=== PATIENT | male | born 1955 | race African-American/Black ===

== ENCOUNTER 2019-02-16 19:54 | Inpatient (IN) | payer MEDICARE ==
[~2019-02-16] VITALS: Ht 185.4 cm; Wt 64.9 kg
[~2019-02-16 19:54] MED LIST: ALPR1TAB2 PO; ALPR1TAB6 PO; CHLO25CA9 PO; CHLO5CAP2 PO; MEGE400O PO; SERT50TA8 PO; SPIR50TA4 PO
--- NOTE | 2019-02-16 21:10 | PHYS DOC ---
Past Medical History Past Medical History: GERD, Hepatitis, Liver Disease Past Surgical History: No Surgical History Alcohol Use: None Drug Use: Marijuana Adult General Chief Complaint Chief Complaint: OTHER COMPLAINTS HPI HPI Patient is a 63 year old M who presents with confusion. He states that this has been going on for one week. He reports that he usually takes anti-anxiety medication but has recently run out and would like more. He is a former ETOH user with a history of hepatitis C. He is a current everyday smoker and occasionally uses marijuana. He also reports feeling as though his brother is out to get him. Additional history obtained from the daughter. He is locking himself in his room he is not safe to be at home he is paranoid he gets intermittently agitated she thinks he has issues with his hepatitis C she wants him to be admitted Review of Systems Review of Systems Constitutional: Denies fever or chills [] Eyes: Denies change in visual acuity, redness, or eye pain [] HENT: Denies nasal congestion or sore throat [] Respiratory: Denies cough or shortness of breath [] Cardiovascular: No additional information not addressed in HPI [] GI: Denies abdominal pain, nausea, vomiting, bloody stools or diarrhea [] : Denies dysuria or hematuria [] Musculoskeletal: Denies back pain or joint pain [] Integument: Denies rash or skin lesions [] Neurologic: Denies headache, focal weakness or sensory changes [] Endocrine: Denies polyuria or polydipsia [] All other systems were reviewed and found to be within normal limits, except as documented in this note. Current Medications Current Medications Current Medications Medications (Trade) Dose Ordered Sig/Dima Start Time Stop Time Status Last Admin Dose Admin Lorazepam (Ativan) 1 mg 1X ONCE 02/16/19 21:30 02/16/19 21:31 DC 02/16/19 22:06 1 MG Allergies Allergies Allergies Coded Allergies Type Severity Reaction Last Updated Verified Penicillins Allergy Intermediate 08/19/15 Yes Physical Exam Physical Exam Constitutional: Well developed,cachectic dishveled HENT: Normocephalic, atraumatic, bilateral external ears normal, oropharynx dry, no oral exudates, nose normal. [] Eyes: PERRLA, EOMI, conjunctiva normal, no discharge. [] Neck: Normal range of motion, no tenderness, supple, no stridor. [] Cardiovascular:Heart rate regular rhythm, no murmur [] Lungs & Thorax: Bilateral breath sounds clear to auscultation [] Abdomen: Bowel sounds normal, soft, no tenderness, no masses, no pulsatile masses. [] Skin: Warm, dry, no erythema, no rash. [] Back: No tenderness, no CVA tenderness. [] Extremities: No tenderness, no cyanosis, no clubbing, ROM intact, one plus edema. Neurologic: Alert and oriented 2 moving all extremities no cranial nerve deficit Psychologic: Patient has evidence of some paranoia Current Patient Data Vital Signs Vital Signs Date Time Temp Pulse Resp B/P (MAP) Pulse Ox O2 Delivery O2 Flow Rate FiO2 02/16/19 20:50 98.3 78 18 117/75 (89) 98 Room Air 98.3 Lab Values Laboratory Tests Test 02/16/19 21:25 White Blood Count 6.5 x10^3/uL (4.0-11.0) Red Blood Count 4.12 x10^6/uL (4.30-5.70) L Hemoglobin 13.5 g/dL (13.0-17.5) Hematocrit 39.4 % (39.0-53.0) Mean Corpuscular Volume 96 fL (79-100) Mean Corpuscular Hemoglobin 33 pg (25-35) Mean Corpuscular Hemoglobin Concent 34 g/dL (31-37) Red Cell Distribution Width 14.2 % (11.5-14.5) Platelet Count 231 x10^3/uL (140-400) Neutrophils (%) (Auto) 35 % (31-73) Lymphocytes (%) (Auto) 49 % (24-48) H Monocytes (%) (Auto) 12 % (0-9) H Eosinophils (%) (Auto) 3 % (0-3) Basophils (%) (Auto) 1 % (0-3) Neutrophils # (Auto) 2.3 x10^3uL (1.8-7.7) Lymphocytes # (Auto) 3.2 x10^3/uL (1.0-4.8) Monocytes # (Auto) 0.8 x10^3/uL (0.0-1.1) Eosinophils # (Auto) 0.2 x10^3/uL (0.0-0.7) Basophils # (Auto) 0.1 x10^3/uL (0.0-0.2) Prothrombin Time 14.0 SEC (11.7-14.0) Prothrombin Time INR 1.1 (0.8-1.1) Sodium Level 140 mmol/L (136-145) Potassium Level 3.8 mmol/L (3.5-5.1) Chloride Level 103 mmol/L (98-107) Carbon Dioxide Level 26 mmol/L (21-32) Anion Gap 11 (6-14) Blood Urea Nitrogen 8 mg/dL (8-26) Creatinine 0.8 mg/dL (0.7-1.3) Estimated GFR (Cockcroft-Gault) 118.1 BUN/Creatinine Ratio 10 (6-20) Glucose Level 83 mg/dL (70-99) Calcium Level 9.0 mg/dL (8.5-10.1) Total Bilirubin 0.3 mg/dL (0.2-1.0) Aspartate Amino Transferase (AST) 15 U/L (15-37) Alanine Aminotransferase (ALT) 15 U/L (16-63) L Alkaline Phosphatase 91 U/L (46-116) Ammonia 20 mcmol/L (11-34) VV-Obz-P-Type Natriuretic Peptide 14 pg/mL (0-124) Total Protein 7.6 g/dL (6.4-8.2) Albumin 3.7 g/dL (3.4-5.0) Albumin/Globulin Ratio 0.9 (1.0-1.7) L Ethyl Alcohol Level < 10 mg/dL (0-10) Laboratory Tests 02/16/19 21:25 Laboratory Tests 02/16/19 21:25 EKG EKG [] Interpretation Time: Normal sinus rhythm rate of 75 no acute ischemic changes noted interpreted by me time of encounter Radiology/Procedures Radiology/Procedures [] Impressions: CT scan of the head without contrast 02/16/2019 Clinical History: Altered mental status. Technique: Unenhanced, contiguous, 5 mm axial sections were obtained through the head. One or more of the following individualized dose reduction techniques were utilized for this study: 1. Automated exposure control. 2. Adjustment of the mA and/or kV according to patient size. 3. Use of iterative reconstruction technique. Findings: Comparison study is dated 03/20/2014. There is generalized parenchymal atrophy. Areas of decreased attenuation are seen within the periventricular and subcortical white matter of both cerebral hemispheres consistent with areas of small vessel ischemic disease. No acute parenchymal abnormality is seen. No extra-axial fluid collection is noted. No skull fracture is seen. Impression: No acute intracranial abnormality is seen. Electronically signed by: Isrrael Chang MD (02/16/2019 9:54 PM) [facility] DICTATED and SIGNED BY: ISRRAEL CHANG MD DATE: 02/16/192153 Course & Med Decision Making Course & Med Decision Making Pertinent Labs and Imaging studies reviewed. (See chart for details) []63-year-old male with history of hepatitis C who is presenting with increasing paranoia, currently in the emergency room, and cooperative but daughter and mother who live with him are adamant that he must be admitted for placement D/W APPL ADMIT FOR PLACEMENT URINE PENDING, BUT LABS AND VITALS ARE NORMAL OTHERWISE. CT HEAD NEG CXR NEG ACUTE Dragon Disclaimer Dragon Disclaimer This electronic medical record was generated, in whole or in part, using a voice recognition dictation system. Departure Departure Impression: Primary Impression: Cirrhosis of liver Additional Impression: Confusion Disposition: ADMITTED INPATIENT Admitting Physician: Milly Mace Condition: STABLE Referrals: MILLY MACE MD (PCP) Problem Qualifiers TYLER SEPULVEDA MD February 16, 2019 21:10
[2019-02-16] MEDS ORDERED: LORazepam 0.5 MG TABLET PO ONE (21:30)
[2019-02-16 21:41] LABS: BASO # 0.1 x10^3/uL (0.0-0.2); BASO % 1 % (0-3); EOS # 0.2 x10^3/uL (0.0-0.7); EOS % 3 % (0-3); HEMATOCRIT 39.4 % (39.0-53.0); HEMOGLOBIN 13.5 g/dL (13.0-17.5); LYMPH # 3.2 x10^3/uL (1.0-4.8); LYMPH % 49 % (24-48); MEAN CORPUSCULAR HEMOGLOBIN 33 pg (25-35); MEAN CORPUSCULAR HGB CONC 34 g/dL (31-37); MEAN CORPUSCULAR VOLUME 96 fL (79-100); MONO # 0.8 x10^3/uL (0.0-1.1); MONO % 12 % (0-9); NEUT # 2.3 x10^3uL (1.8-7.7); NEUT % 35 % (31-73); PLATELET COUNT 231 x10^3/uL (140-400); RED BLOOD COUNT 4.12 x10^6/uL (4.30-5.70); RED CELL DISTRIBUTION WIDTH 14.2 % (11.5-14.5); WHITE BLOOD COUNT 6.5 x10^3/uL (4.0-11.0)
[2019-02-16 21:52] LABS: CREATININE 0.8 mg/dL (0.7-1.3); GFR 118.1; POTASSIUM 3.8 mmol/L (3.5-5.1)
--- NOTE | 2019-02-16 21:57 | RAD ---
CT scan of the head without contrast 02/16/2019 Clinical History: Altered mental status. Technique: Unenhanced, contiguous, 5 mm axial sections were obtained through the head. One or more of the following individualized dose reduction techniques were utilized for this study: 1. Automated exposure control. 2. Adjustment of the mA and/or kV according to patient size. 3. Use of iterative reconstruction technique. Findings: Comparison study is dated 03/20/2014. There is generalized parenchymal atrophy. Areas of decreased attenuation are seen within the periventricular and subcortical white matter of both cerebral hemispheres consistent with areas of small vessel ischemic disease. No acute parenchymal abnormality is seen. No extra-axial fluid collection is noted. No skull fracture is seen. Impression: No acute intracranial abnormality is seen. Electronically signed by: Isrrael Chang MD (02/16/2019 9:54 PM) [employer]
[2019-02-16 21:58] LABS: ALBUMIN 3.7 g/dL (3.4-5.0); ALBUMIN/GLOBULIN RATIO 0.9 (1.0-1.7); TOTAL BILIRUBIN 0.3 mg/dL (0.2-1.0); TOTAL PROTEIN 7.6 g/dL (6.4-8.2)
--- NOTE | 2019-02-16 22:33 | RAD ---
AP portable chest radiograph 02/16/2019 Clinical History: Shortness of breath. An AP erect portable digital radiograph of the chest was obtained. Comparison study is dated 03/19/2014. The cardiac silhouette is normal in size. The thoracic aorta is mildly tortuous. No acute pulmonary infiltrate is seen. No pleural effusion or pneumothorax is noted. Degenerative changes are seen involving the thoracic spine and both shoulders. Impression: No acute abnormality is seen. Electronically signed by: Isrrael Chang MD (02/16/2019 10:30 PM) [facility]
[2019-02-17] VITALS (7 sets, daily range): BP systolic 93–126; BP diastolic 53–79
[2019-02-17] MEDS ORDERED: QUEtiapine 50 MG TAB.ER.24H. PO ONE (03:00)
--- NOTE | 2019-02-17 06:32 | EKG ---
[facility] [address] [place] [address] Test Date: 2019-02-16 Test Time: 21:29:22 Pat Name: ROSSY SHERMAN Department: Room: 514 Gender: M Clinical Lab Clerk: [id number] : 1955 Requested By: TYLER SEPULVEDA Order Number: [id number] Reading MD: Obi Cee Measurements Intervals [place] Rate: 75 P: 41 MS: 198 QRS: 8 QRSD: 78 T: 52 QT: 402 QTc: 452 Interpretive Statements SINUS RHYTHM NORMAL ECG Electronically Signed On 03-12-2019 11:59:38 CDT by Obi Cee
[2019-02-17] MEDS ORDERED: chlordiazePOXIDE HCL 25 MG CAPSULE PO PRN (09:30)
--- NOTE | 2019-02-17 10:38 | NUR ---
BRANDON consulted for accessing meds, food, hx of anxiety and paranoid behaviors. Chart reviewed and DW RN. Pt lives at home with his elderly mother and usually barricades himself in his room. Pt will benefit from [facility] mental health services. BRANDON phoned PAT team for assessment and evaluation for outpatient services. Bob will come in to see pt today.
--- NOTE | 2019-02-17 15:12 | HP ---
ADMIT DATE: 02/16/2019 CHIEF COMPLAINT AND HISTORY OF PRESENT ILLNESS: This 63-year-old male is well known to me, followup in the office. The patient was brought to the Emergency Room by family on the day of admission. I have spoken with his mother in the morning of me seeing her, she states for the last couple of weeks the patient has been out of control, screaming, hollering and then scaring her as she is approaching 89 years of age. He has called the police on many occasions and then when they get there, he states that he did not call them and it must have been the mother that have called them. He is telling me this morning that his brother may be trying to poison him. The reality is the brother has not been around many years according to the mother. Upon questioning, she feels like she cannot handle him at home with the state that he is in. Interestingly, we have not seen the patient in a while and was instructed to make an appointment prior to further refills, which he did not do and has been out of his Xanax actually per the mother over the last week or so prior to this and she wonders if this could be part of it. She denies that he has gone back to doing any kind of drinking or anything like that, which he had done prior. PAST MEDICAL HISTORY: Remarkable for cirrhosis and likely combination between hepatitis C and alcohol-related. He has a history of hepatic encephalopathy, which has been relatively good for some time after he has quit drinking. He did have ascites back at the beginning, but has not developed any further. MEDICATIONS: Brought with the patient, listed on the computer, have been addressed. ALLERGIES: HE IS ALLERGIC TO PENICILLIN. SOCIAL HISTORY: He is a nonsmoker, nondrinker, does occasionally use marijuana according to the chart. FAMILY HISTORY: Noncontributory. REVIEW OF SYSTEMS: Remarkable for him being focused on getting home and wanting to be home, but also with the paranoid type things of family trying to poison him, etc. Denies any specific aches or pains anywhere, shortness of breath, chest pain, change in bowel or bladder, etc. PHYSICAL EXAMINATION: GENERAL: He is a well-developed, well-nourished male who appears about his usual state of health. He is awake and alert, oriented to person and place as well as time. VITAL SIGNS: Stable. He is afebrile. HEAD, EYES, EARS, NOSE AND THROAT: Unremarkable. NECK: Supple without lymphadenopathy or thyromegaly. CHEST: Clear to auscultation and percussion. HEART: Regular rate and rhythm without S3, S4, or murmur. ABDOMEN: Soft, nontender without hepatosplenomegaly or mass. EXTREMITIES: Without cyanosis, clubbing, edema. NEUROLOGIC: Grossly nonfocal. LABORATORY: Reviewed. His INR is within normal limits of 1.1. Ammonia level is normal. CMP is essentially unremarkable as is CBC on admission. Imaging in the Emergency Room included a CT scan of the head that shows no acute intracranial abnormalities seen and a chest x-ray that shows no acute abnormalities. IMPRESSION: 1. Encephalopathy with paranoia of uncertain etiology, but could be related to not getting his medicines over the last week or so. I would have thought it was probably hepatic encephalopathy prior to talking to his mother. 2. Normal ammonia levels. 3. Other problems listed above. PLAN: Home meds will be reinstituted. The patient will be observed. We made [facility] if things do not improve. MILLY GREEN MD DR: COY/sonido JOB#: [id number] / [id number]
--- NOTE | 2019-02-17 15:32 | NUR ---
SW following pt. Pt seen by Bob and has been at [facility] on Friday. Pt denies commanding voices for SI/HI but admits about voices and has paranoia. Pt admits to smoking weed couple times a week. Pt is provided with information with [facility] mental health services but Bob recommends for PCP to do medication adjustment to help with symptoms. Discussed with RN.
[2019-02-17] MEDS: LORazepam 0.5 MG TABLET PO SCH (21:08)
[2019-02-18 07:00] VITALS: BP 124/78
[2019-02-18] MEDS: SPIRONOLACTONE 25 MG TABLET PO SCH (09:05)
[2019-02-18] MEDS: LACTULOSE 20 GM/30 ML SOLUTION. PO SCH (09:05)
--- NOTE | 2019-02-18 10:38 | NUR ---
Nursing note: floor worker well service nurse reported that pt did not sleep. Reported that pt was having hallucinations then raised his fist at rough and truing machine operator when she tried to enter his room to take vital signs. Spoke to pt's mother this am, she reported that he often is paranoid and threatens her. Mother is afraid of pt returning home. Wants pt to be evaluated and medications be reviewed by a psych provider. Reported info to Dr. Mace, orders received. Consults for for [facility] psych eval, pt/ot eval and treat orders placed. Continue to monitor.
[2019-02-18 11:00] VITALS: BP 137/61
[2019-02-18] MEDS: ALPRAZolam 0.5 MG TABLET PO PRN ×2 (11:15→11:16)
--- NOTE | 2019-02-18 11:19 | NUR ---
BRANDON following Pt. PCP requested for radha psych eval. [facility] out of network. BRANDON phoned and faxed referral to [facility]. Discussed with RN. Addendum: 02/18/19 at 1122 by ANAND TAYLOR Pt acceptance and admission pending.
--- NOTE | 2019-02-18 11:23 | NUR ---
Nursing note: Pt has been seen standing at room doorway, peeking out, speaking to self. Offered prn xanax, pt took medication in his hand and pretended to take medication. Asked pt to show his hands, pill was still in med cup. Asked pt to take medication again, pt stated he wanted to clear it with his Dr. Pt pointed at central office technician and went into the [place] to speak to her. (Pest Control Chemical Technician knows pt outside of the hospital) [facility] told pt, "go on and take your meds. If you wanna go see your momma, you gotta take your meds so you can feel better". Pt acknowledged her advice, then seemed to have swallowed his medication. Pt immediately laid in bed and covered up. Will continue to monitor.
[2019-02-18 15:00] VITALS: BP 130/69
--- NOTE | 2019-02-18 15:33 | NUR ---
SW following pt. [facility] unable to take pt as they only take pt's above 65 years old. PAT Team consulted and Pt will need to screened by the [facility] for potential involuntary placement. An athletic turf worker from [facility] will come in the next three hours. RN notified.
[2019-02-18 19:00] VITALS: BP 126/72
[2019-02-18 20:06] LABS: BILIRUBIN,URINE NEGATIVE (NEG); CLARITY,URINE CLEAR; COLOR,URINE YELLOW; NITRITE,URINE NEGATIVE (NEG); PH,URINE 6.5; PROTEIN,URINE NEGATIVE (NEG-TRACE)
[2019-02-18 20:26] LABS: SQUAMOUS EPITHELIAL CELL,UR FEW /LPF
[2019-02-18 20:27] LABS: BACTERIA,URINE 0 /HPF (0-FEW); RBC,URINE 0 /HPF (0-2); WBC,URINE OCC /HPF (0-4)
[2019-02-18] MEDS: LORazepam 0.5 MG TABLET PO SCH (20:47)
[2019-02-18] MEDS ORDERED: QUEtiapine 25 MG TABLET. PO ONE (22:00)
--- NOTE | 2019-02-18 22:40 | NUR ---
Patient has been calm, then calls mother, tells her he thinks someone is listening to them on the phone, hangs up, Patient requests to be placed in a different room, as 'My brother is here..he knows where I am..he is going to hurt me.' This loan underwriter informs him that I will be here all night, and will not let anyone in this room. This loan underwriter invites him to look around..the closets..the bathroom, to see that his brother is not here. Patient did look, got into bed. To continue to monitor throughout the night. Addendum: 02/19/19 at 0251 by FRANKLIN DUNBAR RN Prior to the 2239 nursing note, patient asks this loan underwriter what his mother had said to me, Is informed that his mother is hopeful that he will begin taking his medications, as she states he has not been for a few days, and after he's on them a couple of days, she is hopeful that he will be able to go back home, This is when he became anxious, and calls his mother,(as in the above notation
--- NOTE | 2019-02-19 03:17 | PN ---
DATE: 02/18/2019 LOCATION: He is in room 514. SUBJECTIVE: The patient is awake, alert, seems much calmer today than when I saw him yesterday. His Xanax has been restarted. He is quite unsteady on his feet up when he stands up to greet me when I come in the room. OBJECTIVE: VITAL SIGNS: Stable. He is afebrile. He is awake and alert. CHEST: Clear. HEART: Regular. ABDOMEN: Benign. Home meds have been restarted. Discussed with nursing this morning and PT, OT will be asked to see him in evaluation as well as we will try to get evaluation from [facility] on him while he is here. In addition, I did speak with his mother in detail. He once again feels that he needs to be much better than when he left the home to be able to return to home. IMPRESSION: 1. Encephalopathy, multifactorial, but probably more related to lack of medication at home. 2. Cirrhosis with hepatitis C and history of alcoholism. 3. History of hepatic encephalopathy with normal ammonia levels during the stay. PLAN: Continue present. Await therapy evaluation as well as [facility] evaluation. MILLY GREEN MD DR: COY/sonido JOB#: [id number] / [id number]
[2019-02-19 04:05] VITALS: BP 96/55
[2019-02-19 07:00] VITALS: BP 142/82
[2019-02-19] MEDS: SPIRONOLACTONE 25 MG TABLET PO SCH ×2 (09:03→10:41)
[2019-02-19] MEDS: LACTULOSE 20 GM/30 ML SOLUTION. PO SCH ×2 (09:04→10:42)
[2019-02-19] MEDS: ALPRAZolam 0.5 MG TABLET PO PRN ×3 (09:04→12:33)
--- NOTE | 2019-02-19 10:14 | NUR ---
Went to give AM medication and pt refused,stated he would take the medication when his mother came in. Returned to pt's room at pt's mother is not here as yet. Offered am medication again and pt continues to refuse,states " my mother knows my medication and I get confused". Spoke with pt's mother and she stated she is not coming in today. This nurse requested she talk to him on the phone and encourage him to take his medication. She stated she will call him.
[2019-02-19 11:48] VITALS: BP 127/66
--- NOTE | 2019-02-19 12:20 | NUR ---
BARNDON following pt. BRANDON notified pt's mother was not interested in involuntary placement. Plan of treatment is to continue medication adjustment and keep pt at [facility] until stable. BRANDON phoned PAT team and Chelsea from PAT team also here to see pt today.
[2019-02-19] MEDS: QUEtiapine 100 MG TABLET. PO SCH ×2 (16:09→20:55)
[2019-02-19 19:07] VITALS: BP 125/78
[2019-02-19] MEDS: LORazepam 0.5 MG TABLET PO SCH (20:55)
[2019-02-19 23:09] VITALS: BP 111/68
[2019-02-20] MEDS: QUEtiapine 25 MG TABLET. PO SCH (06:38)
[2019-02-20 07:06] VITALS: BP 108/68
--- NOTE | 2019-02-20 08:19 | NUR ---
Pt's sister called for an update on the pt and to let staff know that his sister is on the way to pick him up. She was informed that the pt is not in his room. She asked if he has taken his anxiety meds this am, let her know that he does not have scheduled anxiety meds. Pt's sister asked about meds then stated she had to go and disconnected the line.
--- NOTE | 2019-02-20 08:31 | NUR ---
Pt's sister called back and asked to give him xachipx. Let her know that I have been in contact with the physician. She stated her and another sister will be here soon to see the pt. They do want to have him admitted to a psych facility on Friday.
--- NOTE | 2019-02-20 08:51 | PN ---
DATE: 02/19/2019 SUBJECTIVE: The patient is lying in bed quiet with a one-to-one sitter present. Nursing states he had a much better night after the addition of Seroquel. OBJECTIVE: VITAL SIGNS: Stable. He is afebrile. Urinalysis has been completed since yesterday, shows no evidence of infection. CHEST: Clear. HEART: Regular. ABDOMEN: Benign. The psychiatric assessment team saw him last evening, recommended transfer to [place] as his insurance is not good at [facility]. The family refused transfer to [facility] and he was started on Seroquel last night. He was locking himself in the bathroom last night, found according to nurses at least some hallucinations. IMPRESSION: 1. Acute psychosis. 2. Cirrhosis. 3. . MILLY GREEN MD DR: COY/sonido JOB#: [id number] / [id number]
[2019-02-20 11:00] VITALS: BP 119/70
[2019-02-20] MEDS: SPIRONOLACTONE 25 MG TABLET PO SCH (11:09)
[2019-02-20] MEDS: LACTULOSE 20 GM/30 ML SOLUTION. PO SCH (11:09)
[2019-02-20] MEDS: ALPRAZolam 0.5 MG TABLET PO PRN (11:18)
[2019-02-20 15:00] VITALS: BP 97/67
[2019-02-20] MEDS: QUEtiapine 100 MG TABLET. PO SCH ×2 (17:49→20:58)
[2019-02-20 18:54] VITALS: BP 102/64
--- NOTE | 2019-02-20 19:57 | PN ---
DATE: 02/20/2019 LOCATION: He is in room 514. SUBJECTIVE: The patient is awake, alert, currently calm, but just finished an attempted escape from the hospital, getting in the stairwell despite one-to-one sitter being present in the room and threatening the one-to-one sitter to hit them. He has now calmed down. I spoke with his sister and mother this morning, are now agreeable to . I spoke with nursing and we are going to try to arrange that today if we can at the latest Friday. He has started on an increased schedule of Seroquel today and we will see how that goes unless he is able to transfer. OBJECTIVE: GENERAL: He remains paranoid and combative at times. VITAL SIGNS: Stable. He is afebrile. CHEST: Clear. HEART: Regular. ABDOMEN: Benign. IMPRESSION: 1. Psychosis with agitation and escape attempts. We will continue the one-to-one sitter. 2. Cirrhosis. PLAN: Transfer to inpatient psych as soon as a bed can be available; otherwise, continue to try to adjust medicines here. MILLY GREEN MD DR: COY/sonido JOB#: [id number] / [id number]
[2019-02-20] MEDS: LORazepam 0.5 MG TABLET PO SCH (20:58)
[2019-02-20 23:59] VITALS: BP 90/55
[2019-02-21 03:50] VITALS: BP 96/62
[2019-02-21] MEDS: ALPRAZolam 0.5 MG TABLET PO PRN (04:07)
[2019-02-21] MEDS: QUEtiapine 25 MG TABLET. PO SCH ×2 (06:15→07:00)
[2019-02-21] MEDS: SPIRONOLACTONE 25 MG TABLET PO SCH (09:00)
[2019-02-21] MEDS: LACTULOSE 20 GM/30 ML SOLUTION. PO SCH (09:00)
--- NOTE | 2019-02-21 09:31 | NUR ---
Patient currently sleeping and calm. I did wake patient up to do morning assessment and was allowed to do this by patient. Patient refused his morning medications at that time. Patient also refused morning vital signs. Will continue to monitor and try to get patient to allow us to check vitals at 11am. Will continue to monitor patient for changes.
[2019-02-21 10:47] VITALS: BP 103/62
[2019-02-21 14:37] VITALS: BP 102/61
[2019-02-21] MEDS: QUEtiapine 100 MG TABLET. PO SCH ×2 (16:00→20:44)
[2019-02-21 19:02] VITALS: BP 117/72
[2019-02-21] MEDS: LORazepam 0.5 MG TABLET PO SCH (20:45)
[2019-02-21 23:00] VITALS: BP 127/74
--- NOTE | 2019-02-21 23:56 | PN ---
DATE: 02/21/2019 LOCATION: Room 514. SUBJECTIVE: The patient is awake, alert, very calm, lying in bed. Sitter is present and reported he has a very good night so far today without any problems. OBJECTIVE: GENERAL: On questioning, the paranoia seems to be not present today like it has been over the last couple of days. VITAL SIGNS: Stable. He is afebrile. CHEST: Clear. HEART: Regular. ABDOMEN: Benign. IMPRESSION: 1. Psychosis, improving with the Seroquel to date. 2. Cirrhosis. PLAN: Continue present care with either transfer tomorrow to home if he continues to do well versus inpatient psych. His sister called me yesterday and was requesting that maybe if he had to go to inpatient, instead of [place], he can go to . I asked her to discuss that with the director of social services yesterday. That facility is [facility] associated with . MILLY GREEN MD DR: COY/sonido JOB#: [id number] / [id number]
[2019-02-22 03:00] VITALS: BP 111/68
[2019-02-22 07:09] VITALS: BP 122/75
[2019-02-22] MEDS: LACTULOSE 20 GM/30 ML SOLUTION. PO SCH (07:59)
[2019-02-22] MEDS: SPIRONOLACTONE 25 MG TABLET PO SCH (07:59)
[2019-02-22] MEDS: QUEtiapine 25 MG TABLET. PO SCH (08:00)
--- NOTE | 2019-02-22 10:32 | NUR ---
BRANDON following Pt. BRANDON spoke with Pt's mother, Nicky, phone; [phone] and Pt's sister, Sailaja Villanueva, phone: [phone] via phone regarding dc plan. Both reported they did not want pt to go [facility] and wants him to be closer. Pt's sister, Saialja reported her niece had called at [facility] and were informed they take pt's insurance and might take him. Pt's sister at first did not want SW to call [facility] but BRANDON informed her SW is able to make referral to [facility] and she is agreeable. BRANDON phoned and faxed referral to [facility]. Pt acceptance and admission pending. Rachel at [facility] reported they currently do not have open bed but will review clinicals. Will continue to follow.
[2019-02-22 10:51] VITALS: BP 123/70
--- NOTE | 2019-02-22 11:22 | PN ---
DATE: 02/22/2019 LOCATION: Room 514. SUBJECTIVE: The patient is awake, alert, is again a flight risk, I believe, this morning, talking about wanting to sneak out of here. No overt paranoia during my conversation. I spoke with the 1:1 sitter. He said he was running the sitters out during the night. It is obvious he is going to need some sort of inpatient psych admission. On speaking to the family over the weekend, they would prefer here in the [facility] as opposed to [place] and we will ask Viscosity Worker to evaluate for the same. OBJECTIVE: VITAL SIGNS: Stable. He is afebrile. He is awake and alert. CHEST: Clear. HEART: Regular. ABDOMEN: Benign. IMPRESSION: 1. Psychosis with slight improvement with the addition of Seroquel. 2. Cirrhosis of the liver. PLAN: Inpatient psych when it can be arranged. MILLY GREEN MD DR: COY/sonido JOB#: [id number] / [id number]
--- NOTE | 2019-02-22 11:37 | NUR ---
BRANDON following Pt. Spoke with Antonia at [facility] and she reported they do take involuntary requests but requested for a legal documentation for involuntary placement. BRANDON phoned PAT team and Bob will come in to see pt. BRANDON discussed Physician's request to screen for RSI as well. Will continue to follow.
[2019-02-22 14:45] VITALS: BP 107/63
--- NOTE | 2019-02-22 16:17 | NUR ---
BRANDON following Pt. Mark marcelo wants someone to petition court for them to accept pt. BRANDON discussed Pt's mother had planned to come and do AD with pt tomorrow if pt is agreeable to sign but Antonia reported some one still has to petition the court for admission. BRANDON explained this to pt's sister who is upset by situation but stated she will have mother come tomorrow to sign paperwork. Discussed with Bob from [facility] team. Addendum: 02/22/19 at 1627 by ANAND TAYLOR BRANDON left a document on pt's chart to have Physician sign tomorrow. BUSHRA ZEPEDA.
[2019-02-22] MEDS: QUEtiapine 100 MG TABLET. PO SCH ×2 (16:29→21:13)
[2019-02-22 19:00] VITALS: BP 103/67
--- NOTE | 2019-02-22 21:00 | NUR ---
Pt pleasant but guarded when interacting with staff. Asks staff to check out bathroom to make sure no one is in there. Took HS meds without difficulty.
[2019-02-22] MEDS: LORazepam 0.5 MG TABLET PO SCH (21:13)
[2019-02-22 23:00] VITALS: BP 92/61
[2019-02-23 07:07] VITALS: BP 93/48
[2019-02-23] MEDS: LACTULOSE 20 GM/30 ML SOLUTION. PO SCH (09:00)
--- NOTE | 2019-02-23 09:16 | NUR ---
SW following pt. SW spoke with pt's sister, via phone. She reported her mother is unable to come today to speak with pt regarding AD. Per sister, Pt's mother is elderly is not able to move around during rainy weather and they plan to come tomorrow once weather is better. BRANDON discussed if Pt's mother can speak with pt via phone and SW can assist in getting AD completed but sister reports pt will get more confused/paranoid and will not sign AD. Pt's sister also stated they might consider research if cotton [facility] declines pt. SW left a message to to Antonia at [employer]. Pt's family also offered our van to pick them up but they declined. Physician notified and discussed with PAT team.
--- NOTE | 2019-02-23 09:19 | NUR ---
Spoke w/BRANDON Ratliff, pt's mother is unable to come to the hospital today to be with him when he signs DPOA paperwork because she is wheelchair bound, and the weather is bad. Discussed transportation w/nursing technical supervisor Bharat Hermosillo SW, and transportation. We are able to offer a wheelchair van to [employer] pt and her daughter for transport to and from [facility]. Spoke w/pt's daughter, Sailaja, she declines transportation today as the weather is bad, and her (pt's) mother is having pain and difficulty moving due to the weather. She and another sister will transport their mother to [facility] tomorrow (02/24) at 12:30 to sign paperwork, but NOT today. Also wants pt's liquid medication that increases his appetite restarted (Megace?) Rx is filled at [facility] [phone], should be able to provide dosing info. Sailaja will call to check on pt later, wants to be sure his food is warmed up for pt and that he eats well.
[2019-02-23] MEDS: QUEtiapine 25 MG TABLET. PO SCH (09:47)
[2019-02-23] MEDS: SPIRONOLACTONE 25 MG TABLET PO SCH (09:47)
[2019-02-23] MEDS: ALPRAZolam 0.5 MG TABLET PO PRN (09:47)
[2019-02-23 10:53] VITALS: BP 107/64
--- NOTE | 2019-02-23 12:12 | NUR ---
Pt appears at the desk, carrying his bag of personal belongings, stating "I'm out, I need to leave". Extensive discussion w/pt regarding need to stay inpatient to stabilize on medications, obtain additional help. Call to Dr. Mace to inform him of pt's decision, notify him of need for orders or AMA. Dr. Mace emphasizes that pt needs to remain inpatient for care, and this information is repeated to the pt. Pt declines to stay, declines offered transportation. Pt declines to provide information regarding anyone that could be called to pick him up or allow him to stay. Family notified of pt's decision to leave, fact that he is walking and declined transportation. Pt's sister called back to ask what medications he has been taking at home, and requested that Dr. Mace provide scripts for them to fill those medications at home to support him until they can get him back inpatient. Explained that Dr. Mace's office would need to handle calling in prescriptions, but reviewed pt's inpt medications. Pt's other sister is looking for him, mother is waiting to hear by cell phone from him, and we will contact family to let them know if he returns to the hospital. Notified Nursing Pressurised Container Filler Jaimee of pt's current disposition.
--- NOTE | 2019-02-23 16:25 | NUR ---
Contact w/pt's family throughout the day, requesting assistance w/contacting Dr. Mace to get Rx called in and filled for home use, status update about pt's location. Per pt sister, Sailaja, pt called another sister from [facility] to come get him, he is at his sister's house taking meds and getting stabilized. They are still trying to get him into a facility in [place]. Sailaja related history of the pt barricading himself inside and calling 911, but refusing to answer. 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 But he is at his other sister's house resting, the long walk wore him out.
--- NOTE | 2019-02-23 20:32 | DS ---
DATE OF DISCHARGE: 02/23/2019 DATE OF DISCHARGE: AMA, 02/23/2019. PRIMARY DIAGNOSIS: Acute psychosis. ADDITIONAL DIAGNOSES: Cirrhosis of the liver with a history of alcoholism as well as hepatitis C, anorexia, anxiety, agitation, history of hepatic encephalopathy. CHIEF COMPLAINT AND HISTORY OF PRESENT ILLNESS: This is a 63-year-old male admitted with mental status changes on the day of admission. SUMMARY OF STAY: The patient was admitted, became apparent that he was paranoidly antipsychotic throughout the stay. Was agitated at times, locking himself in the bathroom, threatening nurses. We were trying to arrange Inpatient Psych at the time of discharge; however, nothing could ever get arranged completely prior to him leaving [place]. On the day of admission, we restarted his home medicines throughout the stay, added Seroquel to the regimen, although I repeatedly told family, I would feel more comfortable an inpatient psych with him adjusting medicines. Laboratory did not show any evidence of an elevated ammonia level. CBC was normal. CMP was likewise felt relatively abnormal. Coagulation was normal with an INR of 1.1. Alcohol level was negative on admission. Did have a head CT and chest x-ray done in the Emergency Room on admission with no acute findings. DISPOSITION: The patient has left [place] [facility]. I have called in his prescriptions for him to medicine shop that he uses, have been on the phone with his mother and sister on at least 2 dozen occasions over the last 3-4 days regarding this case. We are going to continue to work as an outpatient to try to set up inpatient psychiatric hospitalization, which is what the patient needs. MILLY GREEN MD DR: COY/sonido JOB#: [id number] / [id number]
== END 2019-02-23 12:00 | disposition left against medical advice (07) | DRG 885 ==
LOC: ER 19:54 → 5 NORTH 22:35
PROVIDERS: ADMIT Family Medicine; ATTEND Family Medicine
DX: F23 Brief psychotic disorder (principal); G93.49 Other encephalopathy; K74.60 Unspecified cirrhosis of liver; B19.20 Unspecified viral hepatitis C without hepatic coma; F12.90 Cannabis use, unspecified, uncomplicated; F17.200 Nicotine dependence, unspecified, uncomplicated; K21.9 Gastro-esophageal reflux disease without esophagitis; Z88.0 Allergy status to penicillin
CPT/HCPCS: 36415; 70450; 71045; 80053; 81001; 82140; 83880; 85025; 85610; 87086; 93005; G0480; 99285-25

== ENCOUNTER 2019-06-26 12:25 | Emergency (ER) | payer MEDICARE ==
[~2019-06-26] VITALS: Ht 185.4 cm; Wt 68.0 kg
--- NOTE | 2019-06-26 13:20 | PHYS DOC ---
Past Medical History Past Medical History: Bipolar, GERD, Hepatitis, Liver Disease, Other Additional Past Medical Histor: CIRRHOSIS Past Surgical History: No Surgical History Additional Information: 1 PPD Alcohol Use: None Drug Use: Marijuana Adult General Chief Complaint Chief Complaint: LOWER EXTREMITY EDEMA [facility] Patient is a 64 year old male patient with history of bipolar disorder and hepatitis C who presents with complaining of leg edema. Patient lives with his mother who has dementia and his sister decided to help him and their mother brought him to the emergency room because of lower extremity edema for one year that gradually getting worse. Patient denies pain, shortness of breath, chest pain, focal neuro deficit, fever. Patient has more lower extremity edema in right side but states he did not recognize that he has more edema in right side. Patient is a poor historian. Review of Systems Review of Systems Constitutional: Denies fever or chills [] Eyes: Denies change in visual acuity, redness, or eye pain [] HENT: Denies nasal congestion or sore throat [] Respiratory: Denies cough or shortness of breath [] Cardiovascular: No additional information not addressed in HPI [] GI: Denies abdominal pain, nausea, vomiting, bloody stools or diarrhea [] : Denies dysuria or hematuria [] Musculoskeletal: Denies back pain or joint pain [] Integument: Denies rash or skin lesions [] Neurologic: Denies headache, focal weakness or sensory changes [] Endocrine: Denies polyuria or polydipsia [] All other systems were reviewed and found to be within normal limits, except as documented in this note. Allergies Allergies Allergies Coded Allergies Type Severity Reaction Last Updated Verified Penicillins Allergy Intermediate 08/19/15 Yes Physical Exam Physical Exam Constitutional: No acute distress, non-toxic appearance. [] HENT: Normocephalic, atraumatic. Eyes: PERRLA, EOMI, conjunctiva normal, no discharge. [] Neck: Normal range of motion, no tenderness, supple, no stridor. [] Cardiovascular:Heart rate regular rhythm, no murmur [] Lungs & Thorax: Bilateral breath sounds clear to auscultation [] Abdomen: Bowel sounds normal, soft, no tenderness, no masses, no pulsatile mas ses. [] Skin: Warm, dry, no erythema, no rash. [] Back: No tenderness, no CVA tenderness. [] Extremities: No tenderness, bilateral lower extremity edema morning right side without tenderness or sign of infection Neurologic: Alert and oriented X 3, no focal deficits noted. [] Psychologic: Affect normal, judgement normal, mood normal. [] Current Patient Data Vital Signs Vital Signs Date Time Temp Pulse Resp B/P (MAP) Pulse Ox O2 Delivery O2 Flow Rate FiO2 06/26/19 15:43 74 119/71 (87) 94 Room Air 06/26/19 15:13 17 06/26/19 12:45 97.9 97.9 EKG EKG [][facility] [address] [place] [address] IMAGING REPORT Signed PATIENT: ROSSY SHERMAN ACCOUNT: [id number] : 1955 LOCATION: ER AGE: 64 SEX: M EXAM STATUS: REG ER ORD. PHYSICIAN: MAAME MAKI MD REASON: pain and edema PROCEDURE: VENOUS LOWER EXTREMITY RIGHT Ultrasound venous Doppler INDICATION:Right Lower extremity edema and pain. TECHNIQUE: Grayscale, color Doppler and spectral waveform ultrasound images of the right lower extremity deep veins obtained. COMPARISON: None FINDINGS: The interrogated deep veins are compressible and demonstrate evidence of blood flow with normal respiratory variation and response to augmentation. IMPRESSION: No sonographic evidence of acute DVT of the right lower extremity deep veins. Electronically signed by: Main Larson DO (06/26/2019 1:40 PM) [facility] DICTATED and SIGNED BY: MAIN LARSON DO DATE: 06/26/19 1340 Radiology/Procedures Radiology/Procedures [][facility] [address] [place] [address] IMAGING REPORT Signed PATIENT: ROSSY SHERMAN ACCOUNT: [id number] : 1955 LOCATION: ER AGE: 64 SEX: M EXAM STATUS: REG ER ORD. PHYSICIAN: MAAME MAKI MD REASON: pain and edema PROCEDURE: VENOUS LOWER EXTREMITY RIGHT Ultrasound venous Doppler INDICATION:Right Lower extremity edema and pain. TECHNIQUE: Grayscale, color Doppler and spectral waveform ultrasound images of the right lower extremity deep veins obtained. COMPARISON: None FINDINGS: The interrogated deep veins are compressible and demonstrate evidence of blood flow with normal respiratory variation and response to augmentation. IMPRESSION: No sonographic evidence of acute DVT of the right lower extremity deep veins. Electronically signed by: Main Larson DO (06/26/2019 1:40 PM) [facility] DICTATED and SIGNED BY: MAIN LARSON DO DATE: 06/26/19 1340 Course & Med Decision Making Course & Med Decision Making Pertinent Imaging studies reviewed. (See chart for details) Evaluation of patient in ER showed 64-year-old male patient with complaining of chronic bilateral lower extremity edema. 1. Patient had unremarkable Doppler study and was advised to follow-up with his primary care physician regarding chronic problem. Dragon Disclaimer Dragon Disclaimer This electronic medical record was generated, in whole or in part, using a voice recognition dictation system. Departure Departure Impression: Primary Impression: Bilateral lower extremity edema Disposition: HOME, SELF-CARE (at 1434) Condition: STABLE Referrals: MILLY GREEN MD (PCP) Patient Instructions: Edema, [id number], Peripheral Edema Additional Instructions: Do not drink plenty of liquids Follow-up with your primary care physician in 3-5 days Return to ER if not getting better Urine water pill Spironolactone as instructed keep your legs elevated MAAME MAKI MD Jun 26, 2019 13:20
--- NOTE | 2019-06-26 13:43 | RAD ---
Ultrasound venous Doppler INDICATION:Right Lower extremity edema and pain. TECHNIQUE: Grayscale, color Doppler and spectral waveform ultrasound images of the right lower extremity deep veins obtained. COMPARISON: None FINDINGS: The interrogated deep veins are compressible and demonstrate evidence of blood flow with normal respiratory variation and response to augmentation. IMPRESSION: No sonographic evidence of acute DVT of the right lower extremity deep veins. Electronically signed by: Main Larson DO (06/26/2019 1:40 PM) [facility]
[2019-06-26 15:43] VITALS: BP 119/71
== END 2019-06-26 16:02 | disposition home or self-care (01) ==
LOC: ER 12:25
DX: R60.0 Localized edema (principal); M79.604 Pain in right leg; Z88.0 Allergy status to penicillin
CPT/HCPCS: 93971; 99284-25